=== PATIENT | male | born 1985 | race Caucasian/White ===

== ENCOUNTER 2017-03-18 22:10 | Emergency (ER) | payer BC ==
--- NOTE | 2017-03-18 23:15 | ER PHYSICIAN DOCUMENTATION ---
Physician Documentation [facility] Name:Gee Graham Age:31 yrs Sex:Male :1985 Arrival Date:03/18/2017 Time:22:10 Bed2 Private MD: Shayan Dunham Disposition: 03/18/17 23:11 Discharged to Home/Self Care. Impression: Impacted Cerumen, Ruptured Tympanic Membrane (TM). - Condition is Good. - Discharge Instructions: CERUMEN IMPACTION, Home Care, RUPTURED TM, Traumatic. - Medical Reconciliation form form. - Follow up: Private Physician; When: As needed; Reason: Worsening of condition. - Problem is new. - Symptoms have improved. HPI: 03/18 23:03 This 31 yrs old Male presents to ER with complaints of Ear Pain - Left. sc 23:03 The patient presents with a fullness, an injury. The complaints affect the right ear sc and left ear. Onset: The symptom(s)/episode began/occurred just prior to arrival. Associated signs and symptoms: The patient has no apparent associated signs or symptoms. The patient has experienced similar episodes in the past, a few times. chronic cerumen, self irrigates and may have injured himself tonight. Historical: - Allergies: No known drug Allergies; - Home Meds: 1. None - Tetanus: unknown. - Ebola Screening: : No symptoms or risks identified at this time. . - Immunization history: Unable to Obtain. - Social history: Smoking status: Patient states was never smoker of tobacco. ROS: 23:09 Constitutional: Negative for fever, chills, and weight loss. ga Eyes: Negative for injury, pain, redness, and discharge. Neck: Negative for injury, pain, and swelling. Cardiovascular: Negative for chest pain, palpitations, and edema. Respiratory: Negative for shortness of breath, cough, wheezing, and pleuritic chest pain. Back: Negative for injury and pain. Skin: Negative for injury, rash, and discoloration. 23:09 Neuro: Negative for headache, weakness, numbness, tingling, and seizure. sc 23:09 ENT: Positive for ear pain. Exam: Constitutional: This is a well developed, well nourished patient who is awake, alert, and in no acute distress. Head/Face: Normocephalic, atraumatic. Eyes: Pupils equal round and reactive to light, extra-ocular motions intact. Lids and lashes normal. Conjunctiva and sclera are non-icteric and not injected. Cornea within normal limits. Periorbital areas with no swelling, redness, or edema. Chest/axilla: Normal chest wall appearance and motion. Nontender with no deformity. No lesions are appreciated. Cardiovascular: Regular rate and rhythm with a normal S1 and S2. No gallops, murmurs, or rubs. Normal PMI, no JVD. No pulse deficits. Back: No spinal tenderness. No costovertebral tenderness. Full range of motion. 23:09 Skin: Warm, dry with normal turgor. Normal color with no rashes, no lesions, and no sc evidence of cellulitis. 23:09 ENT: External ear(s): no acute changes, Ear canal(s): cerumen impaction, that is moderate, occluding the right ear canal, TM's: drop of fresh blood but mobile, self sealed tympanic rupture. Vital Signs: 22:16 BP 126 / 82 LA Sitting (auto/reg); Pulse 84 RA; Resp 16 S; Temp 98.0(O); Pulse Ox 95% em3 on R/A; Weight 68.04 kg (R); Height 5 ft. 7 in. (170.18 cm) (R); Pain 7/10; 22:16 Body Mass Index 23.49 (68.04 kg, 170.18 cm) em3 MDM: 22:30 Patient medically screened. ga 23:10 Differential diagnosis: ruptured TM, cerumen impaction. Data reviewed: vital signs, ga nurses notes, and as a result, I will discharge patient. Dispensed Medications: No medications were administered Signatures: Shayan Alcantara MD MD ga Shelby Huff mk4 [facility]
--- NOTE | 2017-03-18 23:15 | ER NURSING DOCUMENTATION ---
Nurse's Notes [facility] Name:Gee Graham Age:31 yrs Sex:Male :1985 Arrival Date:03/18/2017 Time:22:10 Bed2 Private MD: Diagnosis:Impacted Cerumen;Ruptured Tympanic Membrane (TM) Presentation: 03/18 22:13 Acuity: KIARA 4 bw2 22:15 Presenting complaint: Patient states: Left ear pain after home irrigation. Transition 4 of care: Home. 22:15 Method Of Arrival: Walk In [facility] Triage Assessment: 21:10 General: Appears in no apparent distress, Behavior is appropriate for age. Pain: 4 Complains of pain in left ear Pain does not radiate. Pain currently is 9 out of 10 on a pain scale. EENT: Tympanic membrane reddened on left ear canal. Neuro: No deficits noted. Cardiovascular: No deficits noted. Respiratory: Airway. : Derm: Musculoskeletal: Historical: - Allergies: No known drug Allergies; - Home Meds: 1. None - Tetanus: unknown. - Ebola Screening: : No symptoms or risks identified at this time. . - Immunization history: Unable to Obtain. - Social history: Smoking status: Patient states was never smoker of tobacco. Screenin:10 Infectious Disease Risk None. Abuse screen: Denies threats or abuse. Nutritional [facility] screening: No deficits noted. Assessment: 21:10 See Triage Assessment done by same RN. 4 Vital Signs: 22:16 BP 126 / 82 LA Sitting (auto/reg); Pulse 84 RA; Resp 16 S; Temp 98.0(O); Pulse Ox 95% em3 on R/A; Weight 68.04 kg (R); Height 5 ft. 7 in. (170.18 cm) (R); Pain 7/10; 22:16 Body Mass Index 23.49 (68.04 kg, 170.18 cm) em3 ED Course: 21:10 Arm band placed on Bed in low position Call Light in Reach. Family accompanied patient. mk4 22:11 Patient arrived in ED. em3 22:12 Laurel Capone is Primary Nurse. bw2 22:13 Triage completed. bw2 22:18 Valuables Remains with patient Patient has correct armband on for positive em3 identification. Bed in low position. Call light in reach. 22:30 Shayan Alcantara MD is Attending Physician. ca 22:50 Diet: Patient given water. em3 Administered Medications: No medications were administered Outcome: 23:11 Discharge ordered by . ca 23:14 Discharged to home ambulatory, with family. bw2 23:14 Condition: good 23:14 Discharge Assessment: Patient awake, alert and oriented x 3. No cognitive and/or functional deficits noted. Patient verbalized understanding of disposition instructions. 23:14 Discharge instructions given to patient, significant other, Instructed on discharge instructions, follow up and referral plans. medication usage, Demonstrated understanding of instructions, medications. 23:14 Patient left the ED. bw2 Signatures: Shayan Alcantara MD MD sc Meiklejohn, Eric em3 Shelby Huff4 Laurel Capone bw2
[2017-03-18] MEDS ORDERED: CARBAMIDE PEROXIDE 6.5% OTIC 75 DROP/5 ML BTL ONE (23:23)
== END 2017-03-18 23:15 | disposition home or self-care (01) ==
LOC: ER 22:10
DX: H72.91 Unspecified perforation of tympanic membrane, right ear (principal); H61.21 Impacted cerumen, right ear
CPT/HCPCS: 99281